=== PATIENT | female | born 1985 | race Caucasian/White ===

== ENCOUNTER 2017-01-30 08:40 | Outpatient (CLI) | payer BC | END 2017-01-30 11:22 | LOC: D.MAMMO 08:40 | DX: R92.8 Other abnormal and inconclusive findings on diagnostic imaging of breast (principal) ==

== ENCOUNTER 2017-03-21 09:55 | Day surgery (SDC) | payer MEDICARE ==
[2017-03-20 11:20] LABS: BASOPHILS 0.3 % (0-2); EOSINOPHILS 1.6 % (0-7); HEMATOCRIT 42.3 % (36.0-48.0); HEMOGLOBIN 13.7 g/dL (12-16); IMMATURE GRANULOCYTES 0.1 % (0-5); LYMPHOCYTES 25.9 % (15-50); MCH 26.3 pg (26.0-34.0); MCHC 32.4 g/dL (31.0-37.0); MCV 81.2 fL (80.0-100.0); MEAN PLATELET VOLUME 10.3 fL (7.4-10.4); MONOCYTES 7.4 % (2-11); NEUTROPHILS 64.7 % (40-80); PLATELET COUNT 200 10x3/uL (130-400); RBC 5.21 10x6/uL (4.00-5.40); RDW 14.6 % (11.5-14.5); WBC 6.8 10x3/uL (4.8-10.8)
[2017-03-20 11:23] LABS: CALC OSMOLALITY 269 mosm/kg (275-300); CALCIUM 9.1 mg/dL (8.5-10.1); CARBON DIOXIDE 28.1 mmol/L (21.0-32.0); CHLORIDE - SERUM 101 mmol/L (98-107); CREATININE - SERUM 0.9 mg/dL (0.6-1.3); GLUCOSE 85 mg/dL (74-106); POTASSIUM - SERUM 4.3 mmol/L (3.5-5.1); SODIUM 136 mmol/L (136-145); UREA NITROGEN 11 mg/dL (7-18); eGFR NON AFRICAN AMERICAN 78 mL/min (90-120)
[~2017-03-21] VITALS: Ht 170.2 cm; Wt 109.8 kg
--- NOTE | ~2017-03-21 | OP ---
PATIENT NAME: SEE HUTTON MEDICAL RECORD: [id number] :87 LOCATION:[facility] ADMISSION DATE: SURGEON: CHI FLORES MD DATE OF OPERATION: 03/21/2017 PREOPERATIVE DIAGNOSIS: Left breast swelling. POSTOPERATIVE DIAGNOSIS: Left breast swelling. PROCEDURE: Through-cut left breast biopsy. SURGEON: Chi Flores MD REPORT OF PROCEDURE: The patient's left breast was prepped and draped in sterile fashion. A skin incision was made on the inferior medial breast using 11 blade. At this time, multiple fires of a 14 through-cut biopsy device was inserted into the breast with main area of concern being the medial aspect of the breast, multiple sections of tissue were removed and sent off for permanent specimen. We then dressed the wound with Steri-Strips and Band-Aids. COMPLICATIONS: None. CONDITION: Stable. ANESTHESIA: TIVA. BLOOD LOSS: Minimal. TRANSINT:[id number] Voice Confirmation ID: [id number] DOCUMENT ID: [id number] CHI FLORES MD CC: JARED NIETO MD [id number] DICTATION DATE: 03/21/171446 CHEMICAL TECHNICIAN: 03/21/17 [id number] [facility] 03/21/17 [place] [id number] [place] [id number]
[~2017-03-21 09:55] MED LIST: ADIPEX-P37.5 MG PO; BUPROPION XL300 MG PO; VITAMIN D250000 UNIT PO
[2017-03-21 11:14] VITALS: BP 118/84; Ht 170.2 cm; Wt 109.8 kg
[2017-03-21] MEDS ORDERED: HYDROCODON-ACE1 EAC7 PO (14:45)
--- NOTE | 2017-03-21 18:05 | NUR ---
1545--IV DC'D, PT DRESSING. MARVIN LINDO 1600--PT'S RIDE HERE, DISCHARGE INSTRUCTIONS GIVEN AND PT VERBALIZES UNDERSTANDING. PT OFF UNIT VIA WC. MARVIN LINDO
== END 2017-03-21 16:00 | disposition home or self-care (01) ==
LOC: D.OPS 09:55 → D.PAN 13:45 → D.CT 13:45 → D.OPS 16:00
PROVIDERS: Surgery
DX: N63 Unspecified lump in breast (principal); Z01.812 Encounter for preprocedural laboratory examination